=== PATIENT | male | born 1980 | race Caucasian/White ===

== ENCOUNTER 2017-10-22 10:28 | Inpatient (IN) | payer MEDICAID, SELFPAY ==
[2017-10-22 10:41] VITALS: BMI 26.5; BMI 26.6
[2017-10-22 10:48] VITALS: BP 112/77; PULSE 79; RESP 16; TEMP 36.8; O2SAT 95
[2017-10-22 10:49] VITALS: BP 112/77; PULSE 79; RESP 16; TEMP 36.8
--- NOTE | 2017-10-22 11:31 | PCM.HP.STD ---
Problem List (1) Acute opioid withdrawal Status: Acute (2) Heroin dependence Status: Chronic History of Present Illness Date of Admission: 10/22/17 Chief Complaint: Abdominal cramps The patient is a 37 year old M history of heroin dependence presents with abdominal cramps. Patient also complains of nausea and vomited a couple of times prior to him being admitted on the day of his admission. Patient reports continuous use of heroin despite undergoing previous medical stabilization he only remained sober for 2 months. His assessment was consistent with acute opioid withdrawal admitted for medical stabilization. Past Medical History Past Medical History (Chronic Problems): Chronic Problems Heroin dependence (Chronic) Allergies No Known Allergies Allergy (Verified 09/22/16 23:30) Home Medications: Ambulatory Orders Medication Instructions Recorded No Known/Unobtainable [No Known 09/22/16 Home Medications] Surgical History: no surgical history Psychiatric History: No pertinent psych hx Smoking Status: Never smoker - *Family History Maternal History Items: No pertinent history Paternal History Items: COPD Review of Systems Constitutional: Denies: Anorexia, Chills, Fever, Night Sweats, Weight Change HEENT: Denies: Head Aches, Sinus Congestion, Sinus Drainage Cardiovascular: Denies: Chest Pain, Orthopnea, Palpitations, Paroxysmal Noc. Dyspnea Respiratory: Denies: Cough, Shortness of breath at rest, Shortness of breath upon exertion, Sputum production Gastrointestinal: Reports: Abdominal Pain, Nausea, Vomiting. Denies: Hematemesis, Hematochezia, Melena Genitourinary: Denies: Dysuria, Frequency, Hematuria, Urgency Musculoskeletal: Denies: Joint Pain, Joint Tenderness Skin: Denies: Rash Neurological: Denies: Focal weakness, Numbness, Tingling Psychiatric: Reports: Anxiety. Denies: Homicidal Ideations, Suicidal Ideations Hematologic/ Lymphatic: Denies: Easy Bruising, Easy Bleeding VTE Information - Inpt Only VTE Present on Admission: No VTE Mechan Device Prophylaxis: Knee High NIA Hose VTE Pharm Prophylaxis ordered?: Yes Objective: GENERAL: cooperative HEENT: Clear conjunctiva, NECK; supple, normal thyroid, CHEST: Clear to auscultation bilaterally, HEART: Regular S1 S2, no audible murmurs ABDOMEN: soft, non-tender, normoactive bowel sounds, RECTAL: deferred EXTREMITIES: No edema, no clubbing, no cyanosis. WAREHOUSE ORDER PICKER: Awake, no lateralizing signs SKIN: Tattoos on arms - Physical Exam Vital Signs Temp Pulse Resp BP Pulse Ox 98.3 F 79 16 112/77 95 10/22/17 10:49 10/22/17 10:49 10/22/17 10:49 10/22/17 10:49 10/22/17 10:48 Oxygen Delivery Method Room Air Weight: 101.6 kg Body Mass Index (BMI) 26.5 Laboratory Tests Past 24 Hrs 10/22/17 10/22/17 10/22/17 11:20 11:20 11:20 WBC Pending RBC Pending Hgb Pending Hct Pending MCV Pending MCH Pending MCHC Pending RDW Pending RDW Differential Pending Plt Count Pending Neut % (Auto) Pending Absolute Neuts (auto) Pending Total Counted Pending PT Pending INR Pending Sodium Pending Potassium Pending Chloride Pending Carbon Dioxide Pending Anion Gap Pending BUN Pending Creatinine Pending Est GFR (MDRD) Af Amer Pending Est GFR (MDRD) Non-Af Pending BUN/Creatinine Ratio Pending Glucose Pending Calcium Pending Magnesium Pending Total Bilirubin Pending AST Pending ALT Pending Alkaline Phosphatase Pending Total Protein Pending Albumin Pending Amylase Pending Lipase Pending Ethyl Alcohol 10/22/17 11:20 WBC RBC Hgb Hct MCV MCH MCHC RDW RDW Differential Plt Count Neut % (Auto) Absolute Neuts (auto) Total Counted PT INR Sodium Potassium Chloride Carbon Dioxide Anion Gap BUN Creatinine Est GFR (MDRD) Af Amer Est GFR (MDRD) Non-Af BUN/Creatinine Ratio Glucose Calcium Magnesium Total Bilirubin AST ALT Alkaline Phosphatase Total Protein Albumin Amylase Lipase Ethyl Alcohol Pending Assessment/Plan Patient is a 37-year-old gentleman with a history of heroin dependence presenting with acute opioid withdrawal 1. Acute opioid withdrawal patient has been admitted to a regular nursing floor for medical stabilization with Subutex. 2. Heroine dependence counseled on cessation 3. DVT prophylaxis; Lovenox Code Visit Inpatient E&M: 26352 Init Hosp L2
[2017-10-22 11:32] LABS: Absolute Lymphocyte Count 1.15 X10^3/ul (0.83-4.51); Absolute Neutrophil Count 6.5 X10^3/uL (2.0-7.7); Basophil# 0.02 X10^3/uL; Basophil% 0.2 % (0-1); Eosinophil# 0.08 X10^3/uL; Eosinophils% 0.9 % (0-5); Hematocrit 40.6 % (40-54); Hemoglobin 13.8 g/dl (13.0-16.5); Lymphocyte # 1.15 X10^3/ul (4.0); Lymphocyte % 13.6 % (19-41); Mean Corpuscular Volume 88.3 fL (80-94); Mean Platelet Vol. 9.9 fl (6.2-12.0); Monocyte# 0.73 X10^3/uL; Monocyte% 8.6 % (0-10); Neutrophil # 6.45 X10^3/uL (2.7-7.7); Neutrophil % 76.5 % (47-70); Platelet Count 254 K/mm3 (150-450); RBC Distribution Width CV 12.5 % (11.6-14.6); RBC Distribution Width SD 39.8 fl (35.1-43.9); White Blood Count 8.5 K/mm3 (4.4-11.0)
[2017-10-22 11:35] LABS: International Normalized Ratio 1.1; POSITIVE COUNT NO; POSITIVE DIFFERENTIAL NO; POSITIVE MORPHOLOGY NO; Prothrombin Time (Protime)PT. 13.7 SECONDS (11.7-14.9)
[2017-10-22 11:44] LABS: ALB/GLOB Ratio 0.8 RATIO (0.9-2.4); AST(SGOT) 120 U/L (15-37); Alanine Aminotransfer ALT/SGPT 235 U/L (16-61); Alkaline Phosphatase 105 U/L (45-117); Amylase 72 U/L (25-115); Anion Gap 6 (5-15); BUN 13 mg/dL (7-18); BUN/Creat Ratio 13.9 RATIO (10-20); Calcium,Total 9.2 mg/dL (8.5-10.1); Chloride 107 mmol/L (98-107); Creatinine, Serum 0.94 mg/dL (0.70-1.30); EST Glomerular Filtration Rate 96 mL/min (>60); Est Glom Filt Rate - Afr Amer 117 mL/min (>60); Estimated Creatinine Clearance 136.91 ml/min; Globulin 4.8 g/dL (2.2-4.2); Glucose 85 mg/dL (74-106); Lipase 81 U/L (73-393); Magnesium 2.2 mg/dL (1.6-2.6); Potassium 3.9 mmol/L (3.5-5.1); Protein, Total 8.8 g/dL (6.4-8.2); Sodium Level 139 mmol/L (136-145)
[2017-10-22] MEDS: Dicyclomine 10 MG Capsule 20 MG PO (12:09)
[2017-10-22] MEDS: chlordiazePOXIDE 25 MG Capsule PO ×4 (12:10→23:15)
[2017-10-22] MEDS: Buprenorphine HCl 2 MG TAB.SUBL SL ×2 (12:10→20:18)
[2017-10-22 14:25] VITALS: BP 120/68; PULSE 82; RESP 18; TEMP 36.7
[2017-10-22 15:37] LABS: Amphetamine Urine VISTA POSITIVE (<1000 ng/mL); Barbiturate Urine VISTA NEGATIVE (< 200 ng/mL); Benzodiazepine Urine VISTA NEGATIVE (< 200 ng/mL); Cocaine Urine VISTA POSITIVE (< 300 ng/mL); Ecstacy Urine VISTA POSITIVE (< 500 ng/mL); Methadone Urine VISTA NEGATIVE (< 300 ng/mL); PCP Urine VISTA NEGATIVE (< 25 ng/mL); THC Urine VISTA POSITIVE (< 50 ng/mL); Vista UDS pH Range 6
[2017-10-22 16:59] LABS: Bacteria 0 SEEN /hpf (None Seen); Red Blood Cells-Urine 0 SEEN /hpf (0-5); Squamous Epithelial Cells - UA 0 SEEN /hpf (0-5)
[2017-10-22 17:00] LABS: Color, Urine Yellow (Yellow); Glucose, Dipstick Normal (Normal); Ketone-Dipstick Negative (Negative); Leukocyte Esterase-Dipstick 25 /ul (Negative); Nitrite-Dipstick Negative (Negative); Occult Blood-Urine Negative /ul (Negative); Protein-Dipstick 15 mg/dl (Negative); Urine Bilirubin Dipstick Negative (Negative); Urine Clarity Clear (Clear); Urine Urobilinogen 1 mg/dl (Normal); Urine pH 6.5 (5.0 - 8.0)
[2017-10-22 17:25] LABS: Mucous, Urine 2+ /hpf (<or=2+); White Blood Cells 0-5 SEEN /hpf (0-5)
[2017-10-22 18:10] VITALS: BP 125/79; PULSE 83; RESP 18; TEMP 36.8
[2017-10-22 20:02] VITALS: BP 122/72; PULSE 87; RESP 18; TEMP 36.4
[2017-10-22] MEDS: traZODone 50 MG Tablet PO (22:20)
[2017-10-23 00:25] VITALS: BP 116/68; PULSE 91; RESP 18; TEMP 36.3
[2017-10-23] MEDS: Buprenorphine HCl 2 MG TAB.SUBL SL ×3 (03:56→20:44)
[2017-10-23 03:57] VITALS: BP 120/65; PULSE 63; RESP 16; TEMP 36.8
[2017-10-23] MEDS: chlordiazePOXIDE 25 MG Capsule PO ×2 (03:57→08:12)
--- NOTE | 2017-10-23 07:58 | PCM.PN.HOSP ---
Subjective: Patient is a 37-year-old gentleman with a history of heroin dependence presenting with acute opioid withdrawal admitted to regular nursing floor where he is currently undergoing medical stabilization Seen this a.m. admit to slight improvement in overall condition Objective: GENERAL: cooperative HEENT: Clear conjunctiva, NECK; supple, normal thyroid, CHEST: Clear to auscultation bilaterally, HEART: Regular S1 S2, no audible murmurs ABDOMEN: soft, non-tender, normoactive bowel sounds, RECTAL: deferred EXTREMITIES: No edema, no clubbing, no cyanosis. PHYSICAL SCIENCES PROFESSOR: Awake, no lateralizing signs SKIN: Tattoos on arms Vitals/I&O's: Vital Signs Temp Pulse Resp BP Pulse Ox 98.2 F 63 16 120/65 95 10/23/17 03:57 10/23/17 03:57 10/23/17 03:57 10/23/17 03:57 10/22/17 10:48 Oxygen Delivery Method Room Air Weight: 101.6 kg Body Mass Index (BMI) 26.5 Intake and Output for Last 24 Hours 10/21/17 10/22/17 10/23/17 23:59 23:59 23:59 Intake Total 400 / 400 600 / 600 Balance 400 / 400 600 / 600 Laboratory Results 10/22/17 11:20: WBC 8.5, RBC 4.60, Hgb 13.8, Hct 40.6, MCV 88.3, MCH 30.0, MCHC 34.0, RDW 12.5, RDW Differential 39.8, Plt Count 254, MPV 9.9, Immature Gran % (Auto) 0.200, Neut % (Auto) 76.5 H, Lymph % (Auto) 13.6 L, Sunflower % (Auto) 8.6, Eos % (Auto) 0.9, Baso % (Auto) 0.2, Absolute Neuts (auto) 6.5, Absolute Lymphs (auto) 1.15, Total Counted Not Reportable 10/22/17 11:20: PT 13.7, INR 1.1 10/22/17 11:20: Sodium 139, Potassium 3.9, Chloride 107, Carbon Dioxide 26.0, Anion Gap 6, BUN 13, Creatinine 0.94, Estim Creat Clear Calc 136.91, Est GFR (MDRD) Af Amer 117, Est GFR (MDRD) Non-Af 96, BUN/Creatinine Ratio 13.9, Glucose 85, Calcium 9.2, Magnesium 2.2, Total Bilirubin 0.80, AST 120 H, ALT 235 H, Alkaline Phosphatase 105, Total Protein 8.8 H, Albumin 4.0, Globulin 4.8 H, Albumin/Globulin Ratio 0.8 L, Amylase 72, Lipase 81 10/22/17 11:20: Ethyl Alcohol 7.0 10/22/17 15:15: Urine Opiates Screen POSITIVE H, Urine Methadone Screen NEGATIVE, Ur Barbiturates Screen NEGATIVE, Ur Phencyclidine Scrn NEGATIVE, Ur Amphetamines Screen POSITIVE H, U Methamphetamin-MDMA POSITIVE H, U Benzodiazepines Scrn NEGATIVE, Urine Cocaine Screen POSITIVE H, U Cannabinoids Screen POSITIVE H, Ur Drug Screen Comment 10/22/17 15:15: Urine Color Yellow, Urine Clarity Clear, Urine pH 6.5, Ur Specific [place] 1.020, Urine Protein 15 H, Urine Glucose (UA) Normal, Urine Ketones Negative, Urine Occult Blood Negative, Urine Nitrite Negative, Urine Bilirubin Negative, Urine Urobilinogen 1 H, Ur Leukocyte Esterase 25 H, Urine RBC 0 SEEN, Urine WBC 0-5 SEEN, Ur Squamous Epith Cells 0 SEEN, Urine Bacteria 0 SEEN, Urine Mucus 2+ Current Medications Acetaminophen (Tylenol) 500 mg PO Q4H PRN PRN PRN Reason: Temp > 100.4 F Al Hydroxide/Mg Hydroxide (Mylanta Ii) 30 ml PO Q6H PRN PRN PRN Reason: dyspesia Bisacodyl (Dulcolax) 10 mg RECTAL DAILY PRN PRN Reason: Constipation Buprenorphine HCl (Buprenorphine Hcl) 4 mg SL Q8H [facility] PRN Reason: Taper Stop: 10/25/17 15:59 Last Admin: 10/23/17 03:56 Dose: 4 mg Chlordiazepoxide (Librium) 25 mg PO Q6H PRN PRN PRN Reason: Anxiety Score 2-3/3 Clonidine (Catapres) 0.1 mg PO Q2H PRN PRN PRN Reason: Hot/Cold Sweats or Anxiety Dicyclomine HCl (Bentyl) 20 mg PO Q6H PRN PRN PRN Reason: Abdomnial Discomfort Last Admin: 10/22/17 12:09 Dose: 20 mg Folic Acid (Folic Acid) 1 mg PO DAILY@0800 [facility] Hydroxyzine HCl (Vistaril Vial) 50 mg IM Q6H PRN PRN PRN Reason: Breakthrough Anxiety Hydroxyzine Pamoate (Vistaril Pamoate Capsule) 50 mg PO Q6H PRN PRN PRN Reason: Mild Anxiety (score 1/3) Ibuprofen (Motrin) 600 mg PO Q8H PRN PRN PRN Reason: Mild-Moderate Pain (1-5/10) Loperamide HCl (Imodium) 2 - 4 mg PO UD PRN PRN Reason: LOOSE STOOLS Magnesium Hydroxide (Milk Of Magnesia) 30 ml PO DAILY PRN PRN PRN Reason: Constipation Methocarbamol (Methocarbamol) 750 mg PO Q6H PRN PRN PRN Reason: Muscle Aches Multivitamins/Minerals (Multivitamin With Minerals) 1 tablet PO DAILYCM [facility] Ondansetron HCl (Zofran Odt) 4 mg PO Q6H PRN PRN PRN Reason: NAUSEA Pramipexole Dihydrochloride (Mirapex) 0.25 mg PO Q12H PRN PRN PRN Reason: Restless Legs Quetiapine Fumarate (Seroquel) 25 mg PO Q6H PRN PRN PRN Reason: Moderate Anxiety (score 2/3) Senna (Senokot) 1 tablet PO QHS PRN PRN Reason: Constipation Thiamine HCl (Vitamin B1) 100 mg PO DAILYCM [facility] Trazodone HCl (Desyrel) 50 mg PO QHS [facility] Last Admin: 10/22/17 22:20 Dose: 50 mg Medical Necessity - Tobacco Use Smoking Status: Never smoker Assessment/Plan Patient is a 37-year-old gentleman with a history of heroin dependence presenting with acute opioid withdrawal 1. Acute opioid withdrawal patient has been admitted to a regular nursing floor for medical stabilization with Subutex. 2. Heroine dependence counseled on cessation 3. DVT prophylaxis; Lovenox Code Visit Inpatient E&M: 69430 [facility] Hosp L2
[2017-10-23] MEDS: Thiamine Hydrochloride 100 MG Tablet PO (08:12)
[2017-10-23] MEDS: Folic Acid 1 MG Tablet PO (08:12)
[2017-10-23] MEDS: Multivitamins,Ther W-Minerals Tablet 1 TABLET PO (08:12)
[2017-10-23 08:15] VITALS: BP 104/62; PULSE 107; RESP 16; TEMP 36.3; O2SAT 94
[2017-10-23 12:00] VITALS: BP 105/65; PULSE 77; RESP 18; TEMP 36.2
[2017-10-23 15:51] VITALS: BP 96/61; PULSE 76; RESP 18; TEMP 36.7
[2017-10-23 20:36] VITALS: BP 119/52; PULSE 80; RESP 16; TEMP 36.6
[2017-10-23] MEDS: traZODone 50 MG Tablet PO (22:25)
[2017-10-24 03:24] VITALS: BP 102/55; PULSE 72; RESP 18; TEMP 36.4
[2017-10-24] MEDS: Buprenorphine HCl 2 MG TAB.SUBL SL ×2 (03:30→15:19)
--- NOTE | 2017-10-24 07:40 | PN_ITS ---
Subjective: Patient seen had a relatively uneventful night Objective: GENERAL: cooperative HEENT: Clear conjunctiva, NECK; supple, normal thyroid, CHEST: Clear to auscultation bilaterally, HEART: Regular S1 S2, no audible murmurs ABDOMEN: soft, non-tender, normoactive bowel sounds, RECTAL: deferred EXTREMITIES: No edema, no clubbing, no cyanosis. TOBACCO FARMWORKER: Awake, no lateralizing signs SKIN: Tattoos on arms Vitals/I&O's: Vital Signs Temp Pulse Resp BP Pulse Ox 97.5 F L 72 18 102/55 L 94 10/24/17 03:24 10/24/17 03:24 10/24/17 03:24 10/24/17 03:24 10/23/17 08:15 Oxygen Delivery Method Room Air Weight: 101.6 kg Body Mass Index (BMI) 26.5 Intake and Output for Last 24 Hours 10/22/17 10/23/17 10/24/17 23:59 23:59 23:59 Intake Total 400 / 400 1000 / 1000 600 / 600 Balance 400 / 400 1000 / 1000 600 / 600 Current Medications Acetaminophen (Tylenol) 500 mg PO Q4H PRN PRN PRN Reason: Temp > 100.4 F Al Hydroxide/Mg Hydroxide (Mylanta Ii) 30 ml PO Q6H PRN PRN PRN Reason: dyspesia Bisacodyl (Dulcolax) 10 mg RECTAL DAILY PRN PRN Reason: Constipation Buprenorphine HCl (Buprenorphine Hcl) 2 mg SL Q12H [facility] PRN Reason: Taper Stop: 10/25/17 15:59 Last Admin: 10/24/17 03:30 Dose: 2 mg Chlordiazepoxide (Librium) 25 mg PO Q6H PRN PRN PRN Reason: Anxiety Score 2-3/3 Clonidine (Catapres) 0.1 mg PO Q2H PRN PRN PRN Reason: Hot/Cold Sweats or Anxiety Dicyclomine HCl (Bentyl) 20 mg PO Q6H PRN PRN PRN Reason: Abdomnial Discomfort Last Admin: 10/22/17 12:09 Dose: 20 mg Folic Acid (Folic Acid) 1 mg PO DAILY@0800 REM[facility]IOS Last Admin: 10/23/17 08:12 Dose: 1 mg Hydroxyzine HCl (Vistaril Vial) 50 mg IM Q6H PRN PRN PRN Reason: Breakthrough Anxiety Hydroxyzine Pamoate (Vistaril Pamoate Capsule) 50 mg PO Q6H PRN PRN PRN Reason: Mild Anxiety (score 1/3) Ibuprofen (Motrin) 600 mg PO Q8H PRN PRN PRN Reason: Mild-Moderate Pain (1-5/10) Loperamide HCl (Imodium) 2 - 4 mg PO UD PRN PRN Reason: LOOSE STOOLS Magnesium Hydroxide (Milk Of Magnesia) 30 ml PO DAILY PRN PRN PRN Reason: Constipation Methocarbamol (Methocarbamol) 750 mg PO Q6H PRN PRN PRN Reason: Muscle Aches Multivitamins/Minerals ([facility]ivitamin With Minerals) [facility] Last Admin: 10/23/17 08:12 Dose: 1 tablet Ondansetron HCl (Zofran Odt) 4 mg PO Q6H PRN PRN PRN Reason: NAUSEA Pramipexole Dihydrochloride (Mirapex) 0.25 mg PO Q12H PRN PRN PRN Reason: Restless Legs Quetiapine Fumarate (Seroquel) 25 mg PO Q6H PRN PRN PRN Reason: Moderate Anxiety (score 2/3) Senna (Senokot) 1 tablet PO QHS PRN PRN Reason: Constipation Thiamine HCl ([facility]itamin B1) [facility] Last Admin: 10/23/17 08:12 Dose: 100 mg Trazodone HCl (Desyrel) 50 mg PO QHS [facility] Last Admin: 10/23/17 22:25 Dose: 50 mg Medical Necessity - Tobacco Use Smoking Status: Never smoker Assessment/Plan Patient is a 37-year-old gentleman with a history of heroin dependence presenting with acute opioid withdrawal 1. Acute opioid withdrawal patient has been admitted to a regular nursing floor for medical stabilization with Subutex. 2. Heroine dependence counseled on cessation 3. DVT prophylaxis; Lovenox Code Visit Inpatient E&M: [id number] [facility] [place] Hosp L2
[2017-10-24 08:06] VITALS: BP 114/50; PULSE 64; RESP 18; TEMP 36.2
[2017-10-24] MEDS: Folic Acid 1 MG Tablet PO (08:10)
[2017-10-24] MEDS: Thiamine Hydrochloride 100 MG Tablet PO (08:11)
[2017-10-24] MEDS: Multivitamins,Ther W-Minerals Tablet 1 TABLET PO (08:11)
[2017-10-24 15:20] VITALS: BP 119/65; PULSE 74; RESP 18; TEMP 36.6
[2017-10-24 22:09] VITALS: BP 113/71; PULSE 76; RESP 16; TEMP 36.7; O2SAT 100
[2017-10-24 22:10] VITALS: BP 113/71; PULSE 76; RESP 16; TEMP 36.7
[2017-10-24] MEDS: traZODone 50 MG Tablet PO (22:13)
[2017-10-24 22:20] VITALS: PULSE 76; RESP 16; O2SAT 100
[2017-10-25 04:21] VITALS: BP 110/59; PULSE 78; RESP 16; TEMP 36.6
[2017-10-25] MEDS: Buprenorphine HCl 2 MG TAB.SUBL SL (04:23)
--- NOTE | 2017-10-25 07:32 | PCM.DC ---
Allergies/Adverse Reactions: Allergies No Known Allergies Allergy (Verified 09/22/16 23:30) Medications to take at Discharge No Known/Unobtainable [No Known Home Medications] 09/22/16 Primary Care Physician: Care Physician,No Primary [Primary Care Provider] -
--- NOTE | 2017-10-25 07:33 | PCM.DC.SUM ---
Discharge Date and Diagnosis Date of Admission: 10/22/17 Date of Discharge: 10/25/17 - Primary Discharge Diagnosis ACUTE OPIOID WITHDRAWAL - Secondary Discharge Diagnosis Chronic Problems Heroin dependence (Chronic) Hospital Course and Treatment Operations: None Summary of Care Provided: Patient is a 37-year-old gentleman with a history of heroin dependence presenting with acute opioid withdrawal 1. Acute opioid withdrawal patient has been admitted to a regular nursing floor for medical stabilization with Subutex. 2. Heroine dependence counseled on cessation 3. DVT prophylaxis; Lovenox Discharge Diet: No Restrictions Home Medications: Medications to take at Discharge No Known/Unobtainable [No Known Home Medications] 09/22/16 Primary Care Physician: Care Physician,No Primary [Primary Care Provider] - Disposition: Home Minutes spent on discharge:: 35 Patient Condition:: Stable Medical Necessity - Tobacco Use Smoking Status: Never smoker Meaningful Use Info Meaningful Use Diagnoses (Choose all that apply): None applicable Code Visit Inpatient E&M: 48290 Disch Hosp
[2017-10-25 07:54] VITALS: BP 109/61; PULSE 63; RESP 18; TEMP 36.4
[2017-10-25 07:55] VITALS: PULSE 63
[2017-10-25] MEDS: Folic Acid 1 MG Tablet PO (07:57)
[2017-10-25] MEDS: Thiamine Hydrochloride 100 MG Tablet PO (07:57)
[2017-10-25] MEDS: Multivitamins,Ther W-Minerals Tablet 1 TABLET PO (07:57)
== END 2017-10-25 11:20 | disposition home or self-care (01) | DRG 435 ==
PROVIDERS: Admitting Provider Internal Medicine; Visit Provider Internal Medicine
DX: F11.23 Opioid dependence with withdrawal (principal)
CPT/HCPCS: 36415; 80053; 80307; 80320; 81001; 82150; 83690; 83735; 85025; 85610; G0480

== ENCOUNTER → 2017-12-23 15:03 | Outpatient (CLI) | payer MEDICAID, SELFPAY ==
[2017-12-23 16:17] LABS: AST(SGOT) 145 U/L (15-37); Alanine Aminotransfer ALT/SGPT 261 U/L (16-61); Albumin, Serum 3.9 g/dL (3.2-5.0); Alkaline Phosphatase 99 U/L (45-117); Bilirubin, Direct 0.18 mg/dL (0.00-0.30); Protein, Total 7.9 g/dL (6.4-8.2)
[2017-12-25 10:06] LABS: HEPATITIS B SURFACE AG Negative (Negative); Hep C Antibodies >11.0 s/co ratio (0.0-0.9)
== END ==
DX: R63.0 Anorexia (principal); R53.81 Other malaise; R11.0 Nausea
CPT/HCPCS: 36415; 80076; 86803; 87340

== ENCOUNTER → 2018-12-29 14:22 | Outpatient (CLI) | payer MEDICAID, SELFPAY ==
[2018-12-29 15:28] LABS: AST(SGOT) 40 U/L (15-37); Alanine Aminotransfer ALT/SGPT 80 U/L (16-61); Alkaline Phosphatase 109 U/L (45-117); Bilirubin, Direct 0.11 mg/dL (0.00-0.30); Globulin 4.1 g/dL (2.2-4.2); Protein, Total 8.1 g/dL (6.4-8.2)
[2018-12-30 09:36] LABS: Hepatitis B Surface Antigen Non-Reactive (Nonreactive)
[2018-12-30 09:46] LABS: Hepatitis C Antibody Reactive (Nonreactive)
== END ==
DX: R63.0 Anorexia (principal); R53.81 Other malaise; R11.0 Nausea
CPT/HCPCS: 36415; 80076; 86803; 87340; 87521

== ENCOUNTER → 2020-08-17 13:29 | Outpatient (CLI) | payer MEDICAID, SELFPAY ==
[2020-08-17 15:42] LABS: Hepatitis B Surface Antibody Non-Reactive; Hepatitis C Antibody Preliminary Reactive (Nonreactive)
[2020-08-18 09:00] LABS: AST(SGOT) 220 U/L (15-37); Alanine Aminotransfer ALT/SGPT 495 U/L (16-61); Albumin, Serum 3.9 g/dL (3.2-5.0); Alkaline Phosphatase 164 U/L (45-117); Bilirubin, Direct 0.15 mg/dL (0.00-0.30); Globulin 3.8 g/dL (2.2-4.2); Protein, Total 7.7 g/dL (6.4-8.2)
== END ==
DX: R63.0 Anorexia (principal); R53.81 Other malaise; R11.0 Nausea
CPT/HCPCS: 36415; 80076; 86706; 86803; 87521

== ENCOUNTER → 2020-12-09 14:10 | Outpatient (CLI) | payer MEDICAID, SELFPAY ==
[2017-10-22 10:41] VITALS: BMI 26.5
[2020-12-09 16:11] LABS: AST(SGOT) 161 U/L (15-37); Alanine Aminotransfer ALT/SGPT 292 U/L (16-61); Albumin, Serum 3.7 g/dL (3.2-5.0); Alkaline Phosphatase 119 U/L (45-117); Bilirubin, Direct 0.16 mg/dL (0.00-0.30); Globulin 3.7 g/dL (2.2-4.2); Protein, Total 7.4 g/dL (6.4-8.2)
[2020-12-10 12:11] LABS: Hepatitis B Surface Antigen Non-Reactive (Nonreactive)
[2020-12-10 12:16] LABS: Hepatitis C Antibody REACTIVE (Nonreactive)
== END ==
DX: R63.0 Anorexia (principal); R53.81 Other malaise; R11.0 Nausea
CPT/HCPCS: 36415; 80076; 86803; 87340; 87521

== ENCOUNTER 2021-04-03 21:01 | Emergency (ER) | payer MEDICAID, SELFPAY ==
[2021-04-03 21:02] VITALS: BP 134/91; PULSE 62; RESP 16; TEMP 36.2; O2SAT 98; BMI 36.1
== END 2021-04-03 23:00 | disposition left against medical advice (07) ==
LOC: ED 04-04 00:14
DX: R21 Rash and other nonspecific skin eruption (principal); Z53.21 Procedure and treatment not carried out due to patient leaving prior to being seen by health care provider

== ENCOUNTER 2021-10-02 18:36 | Emergency (ER) | payer MEDICAID, SELFPAY ==
[2021-10-02 18:39] VITALS: BP 181/91; PULSE 69; RESP 14; TEMP 36.2; O2SAT 100; BMI 36.3
--- NOTE | 2021-10-02 19:39 | CT_ITS ---
STUDY: CT BRAIN WITHOUT CONTRAST REASON FOR EXAM: Male, 41 years old. Paresthesias RADIATION DOSAGE (If Supplied By Facility): CTDIvol = ( 44.99 ) mGy, DLP = ( 829.85 ) mGycm TECHNIQUE: Transaxial CT imaging of the brain was performed without administration of intravenous contrast material. Individualized dose optimization techniques were used for this CT. COMPARISON: No relevant priors. FINDINGS: BRAIN: No acute bleed. No edema. Flores-white matter differentiation is maintained. VENTRICLES AND SULCI: Not dilated. EXTRA-AXIAL: No hemorrhage, fluid collection, or mass. CALVARIUM / SKULL BASE: Unremarkable. FACE/SINUSES: Unremarkable. SOFT TISSUES: Unremarkable. CT/Brain/Head without Contrast IMPRESSION: Unremarkable unenhanced CT scan of the brain. CT angiogram and or MRI may be helpful to evaluate for acute infarct as clinically indicated. Electronically Signed: Ashly Norman MD at 21:10 EDT ,
--- NOTE | 2021-10-02 20:34 | ED.RN ---
Lab here to draw blood as will not draw from the line.
[2021-10-02 21:08] LABS: Absolute Lymphocyte Count 1.61 X10^3/uL (0.83-4.51); Absolute Neutrophil Count 5.3 X10^3/uL (2.0-7.7); Basophil# 0.01 X10^3/uL; Basophil% 0.1 % (0-1); Eosinophil# 0.08 X10^3/uL; Eosinophils% 1.1 % (0-5); Hematocrit 41.2 % (40-54); Hemoglobin 14.7 g/dL (13.0-16.5); Lymphocyte # 1.61 X10^3/ul (0.83-4.51); Lymphocyte % 21.7 % (19-41); Mean Corp Hgb Conc 35.7 g/dL (32-36); Mean Corpuscular Volume 86.9 fL (80-94); Mean Platelet Vol. 9.7 fl (6.2-12.0); Monocyte# 0.45 X10^3/uL; Monocyte% 6.1 % (0-10); NRBC Flagged by Analyzer 0 % (0-5); Neutrophil # 5.25 X10^3/uL (2.7-7.7); Neutrophil % 70.7 % (47-70); Platelet Count 224 K/mm3 (150-450); RBC Distribution Width CV 12.3 % (11.6-14.6); RBC Distribution Width SD 39.3 fl (35.1-43.9); Red Blood Count 4.74 M/mm3 (4.6-6.2); White Blood Count 7.4 K/mm3 (4.4-11.0)
[2021-10-02 21:30] LABS: ALB/GLOB Ratio 0.9 RATIO (0.9-2.4); AST(SGOT) 126 U/L (15-37); Alanine Aminotransfer ALT/SGPT 253 U/L (16-61); Albumin, Serum 4.2 g/dL (3.2-5.0); Alkaline Phosphatase 121 U/L (45-117); Anion Gap 7 (5-15); BUN 11 mg/dL (7-18); BUN/Creat Ratio 10.7 RATIO (10-20); Calcium,Total 9.1 mg/dL (8.5-10.1); Chloride 108 mmol/L (98-107); Creatinine, Serum 1.03 mg/dL (0.70-1.30); EST Glomerular Filtration Rate 85 mL/min (>60); Est Glom Filt Rate - Afr Amer 103 mL/min (>60); Estimated Creatinine Clearance 120.15 ml/min; Globulin 4.6 g/dL (2.2-4.2); Glucose 105 mg/dL (74-106); Potassium 3.9 mmol/L (3.5-5.1); Protein, Total 8.8 g/dL (6.4-8.2); Sodium Level 139 mmol/L (136-145)
--- NOTE | 2021-10-02 22:18 | EDS_ITS ---
HPI History of Present Illness Chief Complaint: Numb/Ting Informant: patient Onset/Context/Timing Onset: Days (3) Context: Gradual Onset Timing: Continuous Quality: Numbness and tingling Location: Right side of tongue and cheek Worsened by: Nothing Relieved by: Nothing Narrative Narrative: Patient presents with numbness and tingling to the right side of his tongue and cheek that has been getting worse over the past 3 days. Patient states it started in his tongue and spread to his right cheek. Patient states nothing makes it worse and nothing makes it better. Patient states he has some lightheadedness with this. Patient also admits to mild headache. Patient de nies any visual changes. Patient denies any difficulty breathing or difficulty swallowing. Patient denies any difficulty talking. Patient denies any weakness of his tongue or face. PFSH PFSH Medical History no medical history no medical history Home Medications buprenorphine-naloxone 1 film BUCCAL BID 10/02/21 [History Last Taken Unknown] Allergy/AdvReac Type Severity Reaction Status Date / Time No Known Allergies Allergy Verified 10/02/21 18:41 Surgical History no surgical history no surgical history Social History Smoking Status: Never smoker ROS ROS ED Constitutional Constitutional ED: Denies chills or fever(s) Eyes Eyes: Denies blurry vision or change in vision ENT ENT ED: Denies rhinorrhea or sore throat Cardiovascular Cardiovascular: Denies chest pain or palpitations Respiratory/Chest Respiratory/Chest: Denies cough or dyspnea Gastrointestinal Gastrointestinal: Denies nausea or vomiting Genitourinary Genitourinary ED: Denies dysuria or hematuria Musculoskeletal Musculoskeletal: Denies back pain or neck pain Integumentary Denies abscess or rash Neurologic Neurologic: Reports headache(s) and paresthesias; Denies weakness Allergic/Immunologic Allergic/Immunologic ED: Denies mouth swelling or urticaria EXAM Physical Exam Const Vital Signs: 10/02/21 18:39 Temperature 97.2 F L Temperature Source Temporal Pulse Rate 69 Respiratory Rate 14 Blood Pressure 181/91 H Blood Pressure Mean 121 Pulse Ox 100 Oxygen Delivery Method Room Air Positive well nourished and well developed General Appearance ED: well developed HEENT Reports moist mucous membranes HEENT Narrative: Oropharynx is clear. Airway is patent. There are no intraoral masses noted. There is no tenderness noted. Neck supple and no JVD Resp normal respiratory effort and clear to auscultation bilaterally Cardio regular rate, regular rhythm and no murmurs GI normal to inspection, nondistended, normoactive bowel sounds and non-tender Palpation: soft Extremity normal to inspection General Extremety ED: Negative for edema or tenderness General Extremity: Negative for edema Neuro oriented x3 Neuro Narrative: There is slight decrease sensation over the right cheek. There is no edema of the tongue. There is full motion of the tongue. There are no masses palpated or visualized. Sensorium / Orientation: alert Motor Exam: strength 5/5 throughout Psych mental status grossly normal Skin no rashes or lesions noted MDM MDM MDM Narrative Medical decision making narrative: CBC was within normal limits. Comprehensive metabolic profile showed a slightly elevated AST of 126 and ALT of 233. Alkaline phosphatase was also slightly elevated at 121. CT scan of the brain was obtained. There is no acute intracranial abnormality. This was interpreted by the radiologist and reviewed by myself. COVID-19 rapid antigen was obtained and was negative. Influenza A and influenza B swabs were obtained and were negative. Patient was advised of his findings. Patient was given a referral for a primary care physician for follow-up care in 5 to 7 days. Patient understood and was agreeable with the plan. All questions were answered to Lab Data Attestation: I reviewed the patient's lab results. Labs: Laboratory Results - last 24 hr 10/02/21 10/02/21 20:59 20:59 WBC 7.4 RBC 4.74 Hgb 14.7 Hct 41.2 MCV 86.9 MCH 31.0 MCHC 35.7 RDW Std Deviation 39.3 RDW Coeff of Codie 12.3 Plt Count 224 MPV 9.7 Immature Gran % (Auto) 0.300 Neut % (Auto) 70.7 H Lymph % (Auto) 21.7 Williams % (Auto) 6.1 Eos % (Auto) 1.1 Baso % (Auto) 0.1 Absolute Neuts (auto) 5.3 Absolute Lymphs (auto) 1.61 Nucleated RBC % 0 Sodium 139 Potassium 3.9 Chloride 108 H Carbon Dioxide 24.0 Anion Gap 7 BUN 11 Creatinine 1.03 Estim Creat Clear Calc 120.15 Est GFR (MDRD) Af Amer 103 Est GFR (MDRD) Non-Af 85 BUN/Creatinine Ratio 10.7 Glucose 105 Calcium 9.1 Total Bilirubin 0.70 AST 126 H ALT 253 H Alkaline Phosphatase 121 H Total Protein 8.8 H Albumin 4.2 Globulin 4.6 H Albumin/Globulin Ratio 0.9 Radiography Diagnostic Testing: Clinical Impression(s) from Imaging Studies Brain CT 10/02/21 19:39 IMPRESSION: Unremarkable unenhanced CT scan of the brain. CT angiogram and or MRI may be helpful to evaluate for acute infarct as clinically indicated. Electronically Signed: Ashly Norman MD at 21:10 EDT , Discharge Plan Triage Chief Complaint: Numb/Ting ED Provider: Ankit Seay Dx/Rx/DC Orders Clinical Impression: Facial paresthesia, Headache, Obesity (BMI 35.0-39.9 without comorbidity) Instructions: ED Paraesthesias Prescriptions: No Action buprenorphine-naloxone 8-2 mg film 1 film buccal BID RF: 0 Primary Care Provider: Care Physician,No Primary Referrals: Ale Hernandez MD [STAFF PHYSICIAN] - 5-7 Days Care Physician,No Primary [Primary Care Provider] - Disposition Disposition: Home, Self Care
[2021-10-02 22:40] VITALS: BP 163/113; PULSE 67
== END 2021-10-02 22:40 | disposition home or self-care (01) ==
PROVIDERS: Emergency Provider Emergency Medicine; Visit Provider Emergency Medicine
DX: R20.2 Paresthesia of skin (principal); R51.9 Headache, unspecified; E66.9 Obesity, unspecified; Z20.822 Contact with and (suspected) exposure to COVID-19
CPT/HCPCS: 36415; 70450; 80053; 85025; 87428; 99282; A4216

== ENCOUNTER 2021-10-19 08:20 | Emergency (ER) | payer MEDICAID, SELFPAY ==
[2021-10-19 08:20] VITALS: BP 157/76; PULSE 112; RESP 20; TEMP 36.8; O2SAT 95; BMI 38.7
--- NOTE | 2021-10-19 09:15 | EDS_ITS ---
HPI HPI - GI History of Present Illness Chief Complaint: Nausea/Vomiting Narrative Narrative: 41-year-old male presenting with nausea, vomiting. 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 Is been on prednisone and had had episodes of vomiting since. Patient does not have abdominal pain. No constipation or diarrhea. He states his Oliveira's palsy on the right is improving his facial palsy is improved. He is able to close his eyes now he has minimal loss of sensation to the right face as well currently. Patient sent by his PCP for evaluation. PFSH PFS Home Medications buprenorphine-naloxone 1 film BUCCAL BID 10/02/21 [History Last Taken Unknown] Allergy/AdvReac Type Severity Reaction Status Date / Time No Known Allergies Allergy Verified 10/19/21 08:20 Social History Smoking Status: Never smoker ROS ROS ED Constitutional Constitutional ED: Denies chills or fever(s) ENT ENT ED: Denies rhinorrhea or sore throat Cardiovascular Cardiovascular: Denies chest pain or palpitations Respiratory/Chest Respiratory/Chest: Denies cough or dyspnea Gastrointestinal Gastrointestinal: Reports nausea and vomiting; Denies abdominal pain, cons tipation or diarrhea Genitourinary Genitourinary ED: Denies dysuria or hematuria Musculoskeletal Musculoskeletal: Denies arthralgias, back pain, myalgias or neck pain Integumentary Denies rash Neurologic Neurologic: Denies headache(s) or weakness Psychiatric Psychiatric: Denies anxiety or depression Endocrine Endocrinology: Denies polydipsia or polyuria EXAM Physical Exam Const Vital Signs: 10/19/21 08:20 10/19/21 11:28 Temperature 98.2 F Temperature Source Temporal Pulse Rate 112 H Respiratory Rate 20 H Blood Pressure 157/76 H 132/89 H Blood Pressure Mean 103 103 Pulse Ox 95 Oxygen Delivery Method Room Air Positive well nourished General Appearance ED: NAD HEENT Reports moist mucous membranes normocephalic and atraumatic Eyes PERRL and EOMs intact bilaterally General Eye ED: Negative for pale conjunctiva or scleral icterus Neck no lymphadenopathy and supple Resp normal respiratory effort and clear to auscultation bilaterally Cardio regular rhythm Rate: tachycardic GI non-tender and non-distended Palpation: soft Neuro Neuro Narrative: Other than slight sensation loss on the right cheek and right mandible cranial nerves II through XII intact. No focal deficits. No facial droop or slurred speech. Sensorium / Orientation: alert, oriented to person and oriented to place Psych mental status grossly normal Skin Lesions: no lesions Rashes: no rashes MDM MDM MDM Narrative Medical decision making narrative: Patient with recently diagnosed Oliveira's palsy which is rapidly improving with prednisone. He is experiencing some nausea and vomiting which may be secondary to taking the prednisone. He does not have any abdominal pain. CBC is obtained and does not show any leukocytosis and his hemoglobin hematocrit are stable. Platelets are normal. Renal function is within normal limits. Potassium slight low at 3.3 otherwise electrolytes unremarkable. Patient given Zofran and IV fluids and feels improved. Patient states he already has a prescription for Zofran called in for him for nausea. He will continue Pepcid. He has 2 days left of prednisone is counseled to continue this. If he has any new or worsening symptoms return to the ER. Impression: 1. Nausea/vomiting 2. Lightheadedness 3. History of Oliveira's palsy Lab Data Attestation: I reviewed the patient's lab results. Labs: Laboratory Results - last 24 hr 10/19/21 10/19/21 09:15 09:15 WBC 10.8 RBC 4.89 Hgb 15.0 Hct 43.5 MCV 89.0 MCH 30.7 MCHC 34.5 RDW Std Deviation 39.5 RDW Coeff of Codie 12.1 Plt Count 254 MPV 10.2 Immature Gran % (Auto) 0.400 Neut % (Auto) 69.1 Lymph % (Auto) 22.1 [place] % (Auto) 6.9 Eos % (Auto) 1.3 Baso % (Auto) 0.2 Absolute Neuts (auto) 7.5 Absolute Lymphs (auto) 2.39 Nucleated RBC % 0 Sodium 139 Potassium 3.3 L Chloride 108 H Carbon Dioxide 25.0 Anion Gap 6 BUN 13 Creatinine 1.03 Estim Creat Clear Calc 120.15 Est GFR (MDRD) Af Amer 103 Est GFR (MDRD) Non-Af 85 BUN/Creatinine Ratio 12.6 Glucose 114 H Calcium 9.3 Discharge Plan Triage Chief Complaint: Nausea/Vomiting ED Provider: Bogdan Rushnig Dx/Rx/DC Orders Prescriptions: No Action buprenorphine-naloxone 8-2 mg film 1 film buccal BID RF: 0 Primary Care Provider: Care Physician,Kenia Primary
[2021-10-19] MEDS: 0.9% Normal Saline 1,000 ML 1000 ML IV (09:20)
[2021-10-19] MEDS: Ondansetron 4 MG/2 ML Vial IV (09:20)
[2021-10-19 09:26] LABS: Absolute Lymphocyte Count 2.39 X10^3/uL (0.83-4.51); Absolute Neutrophil Count 7.5 X10^3/uL (2.0-7.7); Basophil# 0.02 X10^3/uL; Basophil% 0.2 % (0-1); Eosinophil# 0.14 X10^3/uL; Eosinophils% 1.3 % (0-5); Hematocrit 43.5 % (40-54); Lymphocyte # 2.39 X10^3/ul (0.83-4.51); Lymphocyte % 22.1 % (19-41); Mean Corp Hgb Conc 34.5 g/dL (32-36); Mean Corpuscular Hgb 30.7 pg (27.0-32.0); Mean Platelet Vol. 10.2 fl (6.2-12.0); Monocyte# 0.75 X10^3/uL; Monocyte% 6.9 % (0-10); NRBC Flagged by Analyzer 0 % (0-5); Neutrophil # 7.48 X10^3/uL (2.7-7.7); Neutrophil % 69.1 % (47-70); Platelet Count 254 K/mm3 (150-450); RBC Distribution Width CV 12.1 % (11.6-14.6); RBC Distribution Width SD 39.5 fl (35.1-43.9); Red Blood Count 4.89 M/mm3 (4.6-6.2); White Blood Count 10.8 K/mm3 (4.4-11.0)
[2021-10-19 09:36] LABS: Anion Gap 6 (5-15); BUN 13 mg/dL (7-18); BUN/Creat Ratio 12.6 RATIO (10-20); Calcium,Total 9.3 mg/dL (8.5-10.1); Chloride 108 mmol/L (98-107); Creatinine, Serum 1.03 mg/dL (0.70-1.30); EST Glomerular Filtration Rate 85 mL/min (>60); Est Glom Filt Rate - Afr Amer 103 mL/min (>60); Estimated Creatinine Clearance 120.15 ml/min; Glucose 114 mg/dL (74-106); Potassium 3.3 mmol/L (3.5-5.1); Sodium Level 139 mmol/L (136-145)
[2021-10-19 11:28] VITALS: BP 132/89
[2021-10-19 13:01] VITALS: BP 136/89
--- NOTE | 2021-10-19 13:07 | ED.RN ---
PT LEFT PRIOR TO D/C PAPERS. IV HAD NOT BEEN REMOVED BY STAFF. OFFICER ALTAGRACIA AWARE.
--- NOTE | 2021-10-19 13:47 | NURSING ---
Pt sent picture to Officer Ron of his hands confirming removal of the R hand IV.
== END 2021-10-19 13:54 | disposition home or self-care (01) ==
PROVIDERS: Emergency Provider Student in an Organized Health Care Education/Training Program; Visit Provider Student in an Organized Health Care Education/Training Program
DX: R11.2 Nausea with vomiting, unspecified (principal); R42 Dizziness and giddiness; G51.0 Bell's palsy; E87.6 Hypokalemia
CPT/HCPCS: 80048; 85025; 96361; 96374; 99281; 99282; J7030; A4216; J2405

== ENCOUNTER → 2021-11-08 | Outpatient (CLI) | payer MEDICAID, SELFPAY ==
--- NOTE | 2021-11-08 07:54 | MRI_ITS ---
ACR Level 3 findings have been noted. An addendum which confirms receipt of the report will follow. STUDY: MRI BRAIN WITH AND WITHOUT CONTRAST (ATTENTION INTERNAL AUDITORY CANALS - I.A.C.''s) REASON FOR EXAM: Male, 41 years old. rule out stenosis, L4-5, L5-S1 facet arthritis, NKI, low back pain for 6 months TECHNIQUE: Standardized multiplanar fat and water weighted pulse sequences were obtained. ml of 29cc dotarem contrast material was administered intravenously for the contrast portion of the examination. COMPARISON: Head CT dated OCTOBER 02, 2021 FINDINGS: 9.1 mm rounded bright ring lesion in the right and posterior aspect of the yoly at the junction with the cerebellar peduncle demonstrates partial enhancement on the postcontrast study, see image 6/13 series 12. No additional lesions are present in the cerebral hemispheres or posterior fossa. No abnormal dural or meningeal thickening or enhancement is seen on the current study. Normal bilateral temporal bones. Normal bilateral internal auditory canals. There is no demonstrated intracanalicular or cisternal vestibular schwannoma (acoustic neuroma). There is no enhancement of the bilateral VIIth or VIIIth cranial nerves. Normal bilateral cochlea, vestibules and semicircular canals. No cerebellar pontine angle masses or cysts are present. Normal size of the ventricles and extra-axial spaces for the patient''s age. Normal white matter tracts of the supratentorial brain. There is no evidence for recent intracranial ischemia or other cause of cytotoxic edema on diffusion weighted imaging (DWI). Normal bilateral basal ganglia. Normal thalami. Normal flow voids within the major intracranial circulation suggesting patency by spin echo criteria. Normal venous enhancement. There is no extra-axial fluid accumulation. Normal sella turcica, pituitary gland, infundibular stalk, optic chiasm and hypothalamus. Normal tectal plate and pineal gland. Normal midbrain, yoly and medulla. Normal cerebellum. Normal basal cisterns. No demonstrated orbital abnormality, within the constraints of a routine brain study. Normal visualized paranasal sinuses. Normal calvarium and skull base. Normal visualized soft tissue structures. Normal visualized upper cervical spine. MRI/Brain W/WO Contrast IMPRESSION: 1. 9.1 mm rounded bright ring lesion in the right and posterior aspect of the yoly at the junction with the cerebellar peduncle demonstrates partial enhancement on the postcontrast study, see image 6/ series 12. No additional lesions are present in the cerebral hemispheres or posterior fossa. The differential for this lesion includes an old infarct with slight peripheral enhancement related to reperfusion or a plaque lesion associated with a demyelinating process. 2. A malignant neoplasm is not favored as the lesion is not infiltrative and there is no edema surrounding this area, however close interval surveillance will be required an additional evaluation will be needed to ensure no extracranial malignancy with the possibility of metastatic disease is present. 3. Lastly cavernoma can be considered, however no gradient images were acquired on this study to determine if there is any hemosiderin staining typically associated with a cavernoma. 4. Referral to neurosurgery for further assessment/management is recommended. 5. Normal unenhanced and enhanced MRI of the bilateral internal auditory canals (I.A.C''s). Electronically Signed: Erick Yeung MD at 15:23 EDT ,
== END | disposition home or self-care (01) ==
LOC: MRI 07:30
PROVIDERS: Visit Provider Otolaryngology Otolaryngology/Facial Plastic Surgery
DX: G51.0 Bell's palsy (principal); R27.0 Ataxia, unspecified
CPT/HCPCS: 70553; A9575; A4216

== ENCOUNTER → 2022-03-12 | Outpatient (CLI) | payer MEDICAID, SELFPAY ==
[2022-03-12 12:22] LABS: Absolute Lymphocyte Count 1.74 X10^3/uL (0.83-4.51); Absolute Neutrophil Count 2.9 X10^3/uL (2.0-7.7); Basophil# 0.01 X10^3/uL; Basophil% 0.2 % (0-1); Eosinophil# 0.15 X10^3/uL; Eosinophils% 2.9 % (0-5); Hematocrit 40.2 % (40-54); Hemoglobin 13.9 g/dL (13.0-16.5); Lymphocyte # 1.74 X10^3/ul (0.83-4.51); Lymphocyte % 33.3 % (19-41); Mean Corp Hgb Conc 34.6 g/dL (32-36); Mean Corpuscular Hgb 30.8 pg (27.0-32.0); Mean Corpuscular Volume 89.1 fL (80-94); Mean Platelet Vol. 10.1 fl (6.2-12.0); Monocyte# 0.38 X10^3/uL; Monocyte% 7.3 % (0-10); NRBC Flagged by Analyzer 0 % (0-5); Neutrophil # 2.93 X10^3/uL (2.7-7.7); Neutrophil % 55.9 % (47-70); Platelet Count 229 K/mm3 (150-450); RBC Distribution Width CV 12.1 % (11.6-14.6); RBC Distribution Width SD 39.5 fl (35.1-43.9); Red Blood Count 4.51 M/mm3 (4.6-6.2); White Blood Count 5.2 K/mm3 (4.4-11.0)
[2022-03-12 13:49] LABS: ALB/GLOB Ratio 0.9 RATIO (0.9-2.4); AST(SGOT) 93 U/L (15-37); Alanine Aminotransfer ALT/SGPT 203 U/L (16-61); Albumin, Serum 3.7 g/dL (3.2-5.0); Alkaline Phosphatase 139 U/L (45-117); Anion Gap 9 (5-15); BUN 12 mg/dL (7-18); BUN/Creat Ratio 12.1 RATIO (10-20); Calcium,Total 9.2 mg/dL (8.5-10.1); Chloride 108 mmol/L (98-107); Creatinine, Serum 0.99 mg/dL (0.70-1.30); EST Glomerular Filtration Rate 88 mL/min (>60); Est Glom Filt Rate - Afr Amer 107 mL/min (>60); Globulin 4.1 g/dL (2.2-4.2); Glucose 106 mg/dL (74-106); Potassium 3.8 mmol/L (3.5-5.1); Protein, Total 7.8 g/dL (6.4-8.2); Sodium Level 141 mmol/L (136-145); T4 Free Direct 1.02 ng/dL (0.76-1.46)
[2022-03-12 14:09] LABS: HIV - WCH Non-Reactive (Nonreactive); Hepatitis B Surface Antibody Non-Reactive; Hepatitis B Surface Antigen Non-Reactive (Nonreactive)
[2022-03-14 22:06] LABS: HCV Quant. RNA PCR 1070000 IU/mL (.)
[2022-03-15 16:19] LABS: HCV log 10 6.029 (.); Hepatitis A AB, Total Negative (Negative)
== END | disposition home or self-care (01) ==
LOC: LAB 11:28
PROVIDERS: Referring Provider Registered Nurse; Visit Provider Registered Nurse
DX: F11.21 Opioid dependence, in remission (principal); F15.20 Other stimulant dependence, uncomplicated; F14.20 Cocaine dependence, uncomplicated
CPT/HCPCS: 36415; 80053; 84439; 84443; 85025; 86703; 86706; 86708; 87340; 87522